=== PATIENT | female | born 1960 | race Caucasian/White ===

== ENCOUNTER → 2016-12-29 | Outpatient (CLI) | payer BC ==
[~2016-12-29] MED LIST: LEVO100T PO
--- NOTE | 2016-12-29 14:08 | MAMMOGRAPHY REPORT ---
BILATERAL DIGITAL SCREENING MAMMOGRAM TOMOSYNTHESIS WITH CAD: 12/29/2016 CLINICAL HISTORY: Routine screening. Patient has no complaints. TECHNIQUE: Breast tomosynthesis in addition to standard 2D mammography was performed. Current study was also evaluated with a Computer Aided Detection (CAD) system. COMPARISON: Comparison is made to exams dated: 09/03/2015 mammogram - [facility], 01/21/2010 mammogram, and 06/19/2008 mammogram - [facility]. BREAST COMPOSITION: There are scattered areas of fibroglandular density in both breasts. FINDINGS: No suspicious masses, calcifications, or areas of architectural distortion are noted in e ither breast. There has been no significant interval change compared to prior exams. IMPRESSION: ACR BI-RADS CATEGORY 1: NEGATIVE There is no mammographic evidence of malignancy. A 1 year screening mammogram is recommended. The p atient will receive written notification of the results. Approximately 10% of breast cancers are not detected with mammography. A negative mammographic repor t should not delay biopsy if a clinically suggestive mass is present. Kaia Barcenas M.D. ah/:12/29/2016 10:34:04 Heat Treat Operator: Sushma Haskins RT(R)(M), [facility] letter sent: Normal 1/2 BI-RADS Code: ACR BI-RADS Category 1: Negative
== END | disposition home or self-care (01) ==
LOC: C.MAMM 10:15
PROVIDERS: ATTEND Family Medicine
DX: Z12.31 Encounter for screening mammogram for malignant neoplasm of breast (principal)

== ENCOUNTER → 2018-01-05 | Outpatient (CLI) | payer OTHER ==
[2018-01-05 10:31] LABS: ALBUMIN 3.7 gm/dl (3.4-5.0); ALT/SGPT 49 U/L (12-78); BLOOD UREA NITROGEN 17 mg/dl (7-18); CALCIUM 8.7 mg/dl (8.5-10.1); CARBON DIOXIDE 30 mmol/L (21-32); CHOLESTEROL 173 mg/dl (0-200); CREATININE 0.85 mg/dl (0.60-1.20); GLUCOSE 97 mg/dl (70-99); POTASSIUM 3.7 mmol/L (3.5-5.1); SODIUM 139 mmol/L (136-145)
[2018-01-05 10:34] LABS: ALKALINE PHOSPHATASE 85 U/L (45-117); AST/SGOT 24 U/L (15-37); HEMOGLOBIN A1C 5.2 % (4.5-5.6); LDL CHOLESTEROL CALCULATED 112 mg/dl; TOTAL PROTEIN 7.3 gm/dl (6.4-8.2)
== END ==
LOC: C.LAB1850 08:29
PROVIDERS: ATTEND Nurse Practitioner Family
DX: R73.01 Impaired fasting glucose (principal); Z13.220 Encounter for screening for lipoid disorders

== ENCOUNTER → 2018-03-04 | Outpatient (CLI) | payer OTHER ==
--- NOTE | 2018-03-04 17:12 | DIAGNOSTIC IMAGING REPORT ---
R FINGER(S) MIN 2 VIEWS ROUTINE CLINICAL HISTORY: M67.441 Ganglion cyst of finger of right handright [id number] MCPRA pain. Nodule. COMPARISON: None. DISCUSSION: Mild degenerative changes Daly distal phalanges of third and fourth fingers. No acute bony abnormality. Cortical margins are intact. No abnormal soft tissue calcification. IMPRESSION: No acute process. The above report was generated using voice recognition software. It may contain grammatical, syntax or spelling errors. Electronically signed by: Juan F Parks M.D. 03/04/2018 5:11 PM Dictated Date/Time: 03/04/2018 5:10 PM
== END | disposition home or self-care (01) ==
LOC: C.RAD1850 16:02
PROVIDERS: ATTEND Physician Assistant
DX: M67.441 Ganglion, right hand (principal)